=== PATIENT | female | born 1985 | race Caucasian/White ===

== ENCOUNTER 2023-09-24 17:27 | Observation (INO) | payer OTHER ==
[~2023-09-24] VITALS: Ht 165.1 cm; Wt 72.6 kg
[2023-09-24 17:44] VITALS: BP 159/105; PULSE 69; RESP 20; TEMP 98; O2SAT 98
[2023-09-24] MEDS ORDERED: ONDANSETRON 4 MG/2 ML VIAL IVP ONE (19:50)
[2023-09-24] MEDS ORDERED: KETOROLAC 30 MG/ML VIAL IVP ONE (19:50)
[2023-09-24] MEDS ORDERED: MORPHINE SULFATE 4 MG/ML SYR IVP ONE ×2 (19:50→22:50)
[2023-09-24 20:35] LABS: BASOPHILS # (AUTO) 0.1 K/uL (0.00-0.22); BASOPHILS % (AUTO) 0.6 % (0.0-2.0); EOSINOPHILS # (AUTO) 0.1 K/uL (0-0.4); EOSINOPHILS % (AUTO) 0.6 % (0.0-4.0); HEMATOCRIT 42.2 % (36-48); HEMOGLOBIN 14.1 g/dL (12.0-16.0); LYMPHOCYTES % (AUTO) 36.1 % (20.5-51.1); MEAN CORPUSCULAR HEMOGLOBIN 29 pg (27-31); MEAN CORPUSCULAR HGB CONC 33 g/dL (33-37); MEAN CORPUSCULAR VOLUME 85.9 fL (80-94); MONOCYTES # (AUTO) 0.6 K/uL (0.8-1.0); MONOCYTES % (AUTO) 5.2 % (1.7-9.3); NEUTROPHILS # (AUTO) 6.3 K/uL (1.8-7.7); NEUTROPHILS % (AUTO) 57.5 % (42.2-75.2); PLATELET COUNT (AUTO) 301 K/uL (140-450); RED BLOOD CELL COUNT(AUTO) 4.91 MIL/uL (4.20-5.40)
[2023-09-24 20:49] LABS: BILIRUBIN,URINE NEGATIVE (NEGATIVE); BLOOD, URINE 2+ (NEGATIVE); COLOR,URINE YELLOW (YELLOW); LEUKOCYTE ESTERASE ,URINE 1+ (NEGATIVE); NITRITE, URINE NEGATIVE (NEGATIVE); PROTEIN,URINE NEGATIVE (NEGATIVE); UGLUCOSE NEGATIVE (NEGATIVE); UROBILINOGEN,URINE 0.2 EU/dL (0.2 - 1)
[2023-09-24 20:50] LABS: APPEARANCE,URINE SLIGHTLY CLOUDY (CLEAR)
[2023-09-24 20:57] LABS: ALBUMIN 4.2 g/dL (3.4-5.0); ANION GAP 17.9 (8-16); CALCIUM 9.1 mg/dL (8.5-10.1); CARBON DIOXIDE 21.7 mmol/L (21-32); CREATININE 0.8 mg/dL (0.6-1.3); POTASSIUM 3.6 mmol/L (3.5-5.1); TOTAL BILIRUBIN 0.4 mg/dL (0.0-1.0); TOTAL PROTEIN, SERUM 8.3 g/dL (6.4-8.2)
[2023-09-24 21:04] LABS: BACTERIA,URINE 10-30 (MOD) /HPF (None Seen); MUCUS,URINE 1+ /LPF (None Seen); SQUAMOUS EPITHELIAL CELL,UR 4-10 (MOD) /LPF (0-3 (FEW)); WBC,URINE 0-5 /HPF (0-5)
[2023-09-25] MEDS ORDERED: PIPERACILLIN/TAZOBACTAM 3.375 GM in DEXTROSE 5% 50 ML IV ONE ×2
[2023-09-25] MEDS ORDERED: MAGNESIUM OXIDE 400 MG TAB PO PRN (00:25)
[2023-09-25] MEDS ORDERED: MAG SULF 2000 MG/WATER PREMIX 50 ML IV PRN (00:25)
[2023-09-25] MEDS ORDERED: KCL 20 MEQ IN 100 mL PREMIX 200 ML IV PRN (00:25)
[2023-09-25] MEDS ORDERED: ONDANSETRON 4 MG/2 ML VIAL IVP PRN (00:25)
[2023-09-25] MEDS ORDERED: MORPHINE SULFATE 4 MG/ML SYR IVP PRN (00:25)
[2023-09-25] MEDS: NACL 0.9% 1,000 ML IV SCH ×2 (00:25→12:55)
[2023-09-25] MEDS ORDERED: POTASSIUM CHLORIDE 10 MEQ TABER PO PRN (00:25)
[2023-09-25] MEDS ORDERED: HYDROcodone/APAP 5/325 MG 1 TAB TAB PO PRN (00:25)
[2023-09-25] MEDS ORDERED: ACETAMINOPHEN 325 MG TAB PO PRN (00:25)
[2023-09-25 00:44] LABS: LACTIC ACID 1.3 mmol/L (0.4-2.0)
[2023-09-25] MEDS ORDERED: PIPERACILLIN/TAZOBACTAM 3.375 GM VIAL IV ONE (01:34)
[2023-09-25 02:43] VITALS: BP 137/93; PULSE 74; PULSE 87; RESP 16; RESP 18; TEMP 98; O2SAT 97
[2023-09-25 08:00] VITALS: BP 136/90; PULSE 60; RESP 18; TEMP 97.9; O2SAT 98
[2023-09-25 09:40] LABS: ALBUMIN 3.7 g/dL (3.4-5.0); ANION GAP 17.4 (8-16); CALCIUM 8.4 mg/dL (8.5-10.1); CARBON DIOXIDE 22.7 mmol/L (21-32); CREATININE 0.9 mg/dL (0.6-1.3); MAGNESIUM 1.9 mg/dL (1.8-2.4); POTASSIUM 4.1 mmol/L (3.5-5.1); TOTAL BILIRUBIN 0.7 mg/dL (0.0-1.0); TOTAL PROTEIN, SERUM 7.4 g/dL (6.4-8.2)
[2023-09-25] MEDS ORDERED: IBUP-2213 PO (16:08)
[2023-09-25 17:41] VITALS: BP 118/63; PULSE 96; RESP 18; TEMP 97.7
== END 2023-09-25 18:15 | disposition home or self-care (01) ==
LOC: MED 17:27 → MTU 09-25 00:23
PROVIDERS: ADMIT Internal Medicine; ATTEND Internal Medicine
DX: K80.20 Calculus of gallbladder without cholecystitis without obstruction (principal); E28.2 Polycystic ovarian syndrome; E66.9 Obesity, unspecified; Z79.899 Other long term (current) drug therapy
CPT/HCPCS: 36415; 71045; 76705; 78445; 80053; 81001; 83605; 83690; 83735; 85025; 87040; 87081; 87086; 96365; 96375; 96376; 99285; G0378; J1885; J2270; J2405; J2543; Q0092